=== PATIENT | female | born 1965 | race Caucasian/White ===

== ENCOUNTER 2021-08-09 03:33 | Emergency (ER) | payer MEDICAID, SELFPAY ==
--- NOTE | ~2021-08-09 | XR_ITS ---
EXAMINATION: XR chest 1V portable EXAM DATE: 08/09/2021 04:36 INDICATION: Cough . TECHNIQUE: Portable AP frontal chest x-ray was obtained. There is no prior study for comparison. FINDINGS: The lungs are clear. There are no pleural effusions. The cardiomediastinal silhouette is within normal limits. There is no pneumothorax suspected. The bones and soft tissues are unremarkab le. IMPRESSION: No acute cardiopulmonary findings. Reviewed, dictated and finalized at location A.
[2021-08-09 03:41] VITALS: BP 110/54; PULSE 85; RESP 16; TEMP 36.4; O2SAT 99
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
--- NOTE | 2021-08-09 04:10 | ECG_ITS ---
Measurements Intervals [place] Rate: 82 P: 7 SC: 116 QRS: 3 QRSD: 93 T: 30 QT: 355 QTc: 415 Interpretive Statements SINUS RHYTHM WITH SHORT SC INTERVAL MINIMAL Q WAVES- HIGH LATERAL LEADS BORDERLINE ECG Electronically Signed On 08-09-2021 7:49:31 CDT by Yevgeniy Mcallister D.O.
--- NOTE | 2021-08-09 04:12 | PC.NURSE ---
Pt also reports Shortness of breath. speech clear. ED techs x 2 report unable to obtain blood for lab and pt refusing further attempts. ED MD Bryson notified and OK without blood draw. will continue to monitor.
[2021-08-09 04:26] VITALS: PULSE 83; RESP 19
[2021-08-09 04:41] VITALS: BP 99/64; PULSE 87; RESP 20; O2SAT 99
[2021-08-09 04:45] VITALS: PULSE 93
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
== END 2021-08-09 05:13 | disposition home or self-care (01) ==
PROVIDERS: Emergency Provider Emergency Medicine
DX: R53.1 Weakness (principal)
CPT/HCPCS: 71045; 93005; 99283